=== PATIENT | male | born 1950 | race Caucasian/White ===

== ENCOUNTER → 2022-06-26 | Outpatient (CLI) ==
[~2022-06-26] MED LIST: AMLO1TAB25 PO; ASPI81TA26 PO; ATOR40TA75 PO
== END ==
LOC: M LABSMTC 10:32
PROVIDERS: ATTEND Anesthesiology
DX: Z01.812 Encounter for preprocedural laboratory examination (principal); Z20.822 Contact with and (suspected) exposure to COVID-19

== ENCOUNTER 2022-06-28 09:03 | Day surgery (SDC) | payer MEDICAID, MEDICARE, SELFPAY ==
[~2022-06-28] VITALS: Ht 167.6 cm; Wt 60.3 kg
[~2022-06-28 09:03] MED LIST changes: +BETAMETHASONE SOLUSPAN 6MG/ML 5ML VIAL (J0702 PER 3MG) As Ordered ONE; +BSS IRRIG/VANCO(10MG)/TOBRA(5MG)/EPINEPH(1:1000-0.5CC)500ML BAG-ORONLY IR ONE; +CEFUROXIME 1MG/0.1ML INTRACAMERAL INJ As Ordered ONE; +LIDOCAINE 2% W/EPINEPHRINE 20ML VIAL **PRES FREE As Ordered ONE; +LIDOCAINE 3.5 % 1ML OPHTH TOPICAL GEL OU ONE; +OFLOXACIN 0.3 % (OCUFLOX) OPTH SOL 5ML OD ONE; +PHENYLEPHRINE HCL 10 % OPHTH. SOL 5ML OD PRN; +TOBRADEX OPHTH OINT 3.5 GM As Ordered ONE; +TOBRAMYCIN 80MG/2ML VIAL As Ordered ONE; +[UNRECOGNIZED DRUG - OTHER] As Ordered ONE; +mitoMYcin 0.2 MG/VIAL KIT FOR OPHTHALMIC USE (J7315 PER 0.2MG) As Ordered ONE
[2022-06-28] MEDS ORDERED: CEFUROXIME 1MG/0.1ML INTRACAMERAL INJ As Ordered ONE (10:38)
[2022-06-28] MEDS ORDERED: LIDOCAINE 1% SDV 5ML VIAL As Ordered ONE (10:38)
[2022-06-28] MEDS: TROPICAMIDE 1% OPHTH SOLN 2ML OD SCH ×3 (11:01→11:05)
[2022-06-28] MEDS: PHENYLEPHRINE 2.5% OPHTH SOL 2ML OD SCH ×2 (11:02→11:05)
[2022-06-28] MEDS: CYCLOPENTOLATE 1% OPHTH SOLN 2 ML BTL OD SCH ×2 (11:02→11:05)
[2022-06-28] MEDS ORDERED: MIDAZOLAM INJ 2MG/2ML VIAL (J2250 PER 1MG) As Ordered ONE (12:24)
[2022-06-28] MEDS ORDERED: fentaNYL 100 MCG/2 ML INJECTION As Ordered ONE (12:24)
[2022-06-28] MEDS ORDERED: acetaZOLAMIDE 500MG ER CAP PO STA (12:40)
[2022-06-28 13:10] VITALS: BP 150/82
== END 2022-06-28 13:15 | disposition home or self-care (01) ==
LOC: M SDC 09:03
PROVIDERS: ATTEND Ophthalmology
DX: H25.11 Age-related nuclear cataract, right eye (principal); H40.9 Unspecified glaucoma
CPT/HCPCS: 66183; 66984; C1783; J0697; J2250; J3010; J7315